=== PATIENT | female | born 2000 | race Caucasian/White ===

== ENCOUNTER 2024-02-07 15:39 | Emergency (ER) | payer BC ==
[2024-02-07] MEDS ORDERED: IBUPROFEN 400 MG TABLET (FP) PO ONE (15:57)
[2024-02-07] MEDS: IBUPROFEN 400 MG TABLET (FP) PO ONE (15:59)
[2024-02-07 16:10] VITALS: BP 114/73; PULSE 100; RESP 18; TEMP 97.9; BMI 21.2
== END 2024-02-07 16:46 | disposition home or self-care (01) ==
LOC: FER 15:39
DX: S93.401A Sprain of unspecified ligament of right ankle, initial encounter (principal); X50.1XXA Overexertion from prolonged static or awkward postures, initial encounter; Y93.01 Activity, walking, marching and hiking
CPT/HCPCS: 73610-TC-RT-FY; 73630-TC-RT-FY; 99283-25

== ENCOUNTER 2024-04-21 19:12 | Emergency (ER) | payer BC ==
[2024-04-21 19:28] VITALS: BP 110/64; PULSE 95; RESP 16; TEMP 98.2; BMI 20.9
== END 2024-04-21 20:28 | disposition home or self-care (01) ==
LOC: FER 19:12
DX: R09.A2 Foreign body sensation, throat (principal)
CPT/HCPCS: 70360-TC-FY; 99283-25